=== PATIENT | female | born 1970 | race Caucasian/White ===

== ENCOUNTER 2016-08-13 12:16 | Emergency (ER) | payer SELFPAY ==
[~2016-08-13 12:16] MED LIST: ACIPHEX20 MG PO; ADVAIR 50028 BLISTER INH; ALBUTEROL INH 0.3 ML AERO NEB; BABY ASPIRIN81 MG PO; COLACE100 MG PO; CRESTOR20 MG PO; EPIPEN0.3 MG/0.1 IM; GABAPENTIN300 MG PO; GLIPIZIDE XL2.5 MG; GLUCOPHAGE1000 MG; H; HYDROCHLOROTHIA25 MG; KEFLEX500 MG; KEFLEX500 MG PO; LANTUS100 U/ML SC; LASIX40 MG PO; LIPITOR80 MG; LISINOPRIL-HC PO; LISINOPRIL40 MG; MELOXICAM7.5 MG PO; MULTIVITAMIN1 TAB; NORCO 10/325 TA1 TAB PO; NORCO 5/325 TAB1 TAB PO; NOVOLOG100 U/M SQ; POTASSIUM/CALCIUM PO; PREDNISONE20 MG PO; PROVENTIL0.83 MG/ML IH; SINGULAIR10 MG PO; TYLENOL500 MG PO; VYETTA
[2016-08-13] MEDS ORDERED: LISINOPRIL-HCT1 EAC2 PO (12:34)
[2016-08-13] MEDS ORDERED: NEURONTIN300 M1 PO (12:35)
[2016-08-13] MEDS ORDERED: MELOXICAM15 M1 PO (12:36)
[2016-08-13] MEDS ORDERED: ASPIR 8181 M1 PO (12:36)
[2016-08-13] MEDS ORDERED: ROSUVASTATIN CA20 MG PO (12:36)
[2016-08-13] MEDS ORDERED: VENTOLIN HFA18 G2 PO (12:37)
[2016-08-13] MEDS ORDERED: ACIPHEX20 M1 PO (12:37)
[2016-08-13] MEDS ORDERED: POTASSIUM99 M4 PO (12:43)
[2016-08-13 13:38] LABS: BASO % 0.3 % (0-2); EOS % 2.1 % (0-7); EOSINOPHIL ABSOLUTE COUNT 0.2 tho/cmm (0.0-0.7); HCT-HEMATOCRIT 41.3 % (34.0-49.0); HGB-HEMOGLOBIN 13.6 gm/dl (12.0-15.5); IMMATURE GRANULOCYTES ABSOLUTE 0.01 tho/cmm (0-0.03); IMMATURE GRANULOCYTES PERCENT 0.1 % (0-0.3); LYMPH % 20.6 % (20-45); LYMPH ABSOLUTE COUNT 1.5 tho/cmm (0.8-4.5); MCH (MEAN CORPUSCULAR HGB) 28.2 pg (28.0-32.0); MCHC MEAN CORPUSCULAR HGB CONC 32.9 % (32.0-36.0); MCV (MEAN CELL VOLUME) 85.5 fl (82.0-96.0); MEAN PLATELET VOLUME 9.6 cmc (9.4-12.4); MONO % 5.4 % (0-12); MONOCYTE ABSOLUTE COUNT 0.4 tho/cmm (0.0-1.2); NEUTROPHILS % 71.5 % (40-80); PLATELET COUNT 272 tho/cmm (150-450); RED BLOOD COUNT 4.83 mil/cmm (4.00-5.20); RED CELL DISTRIBUTION WIDTH 13.6 % (12.4-16.4)
[2016-08-13 13:44] LABS: ANION GAP 14 mmol/L (0-20); BLOOD UREA NITROGEN 6 mg/dl (6-24); C-REACTIVE PROTEIN 1.5 mg/dl (0-0.9); CALCIUM 8.6 mg/dl (8.5-10.5); CARBON DIOXIDE-VENOUS 25 mmol/L (22-32); CHLORIDE 103 mmol/l (96-110); CREATININE 0.72 mg/dl (0.50-1.10); GLUCOSE 386 mg/dL (70-110); POTASSIUM 3.9 mmol/L (3.7-5.1); SODIUM 138 mmol/L (135-145); eGFR VALUE FOR BLACK >90 mL/Min
[2016-08-13] MEDS ORDERED: INVOKANA (13:49)
[2016-08-13] MEDS ORDERED: MOBIC7.5 M2 PO (13:49)
[2016-08-13 14:15] LABS: ESR-ERYTHROCYTE SED RATE 13 mm/hr (0-20)
[2016-08-13] MEDS ORDERED: LEVOFLOXACIN750 M1 PO (14:24)
== END 2016-08-13 14:49 ==
LOC: EDMED 12:16
PROVIDERS: Emergency Medicine
DX: S91.332A Puncture wound without foreign body, left foot, initial encounter (principal); E11.65 Type 2 diabetes mellitus with hyperglycemia; Z79.4 Long term (current) use of insulin; Z23 Encounter for immunization; W45.0XXA Nail entering through skin, initial encounter; Y92.019 Unspecified place in single-family (private) house as the place of occurrence of the external cause

== ENCOUNTER 2016-08-17 19:11 | Emergency (ER) | payer SELFPAY ==
[~2016-08-17 19:11] MED LIST changes: +ACIPHEX20 M1 PO; +ASPIR 8181 M1 PO; +INVOKANA; +LEVOFLOXACIN750 M1 PO; +LISINOPRIL-HCT1 EAC2 PO; +MELOXICAM15 M1 PO; +MOBIC7.5 M2 PO; +NEURONTIN300 M1 PO; +POTASSIUM99 M4 PO; +ROSUVASTATIN CA20 MG PO; +VENTOLIN HFA18 G2 PO
[2016-08-17] MEDS ORDERED: LANTUS100 UNITS/ SC (19:29)
[2016-08-17] MEDS ORDERED: NOVOLIN R100 UNIT/1 (19:29)
[2016-08-17] MEDS ORDERED: BACTRIM DS TAB1 EAC2 PO (21:01)
== END 2016-08-17 21:15 ==
LOC: EDMED 19:11
PROC: 0H9NXZZ Drainage of Left Foot Skin, External Approach (ICD-10-PCS; principal; 2016-08-17)
DX: S91.332A Puncture wound without foreign body, left foot, initial encounter (principal); E11.9 Type 2 diabetes mellitus without complications; W45.0XXA Nail entering through skin, initial encounter; Y92.009 Unspecified place in unspecified non-institutional (private) residence as the place of occurrence of the external cause